=== PATIENT | male | born 1935 | race Caucasian/White ===

== ENCOUNTER 2022-05-23 18:36 | Inpatient (IN) | payer MEDICARE, OTHER ==
[~2022-05-23] VITALS: Ht 172.7 cm; Wt 68.0 kg
[2022-05-23 18:36] VITALS: BP 110/80
[2022-05-23] MEDS ORDERED: PROTHROMBIN COMPLEX HUMAN 500 UNITS KIT IV ONE ×2 (18:50→19:58)
--- NOTE | 2022-05-23 18:50 | NUR ---
PATIENT BIBA TO BED 9.
[2022-05-23 19:23] LABS: BASOPHILS # (AUTO) 0.1 K/uL (0.00-0.22); BASOPHILS % (AUTO) 0.5 % (0.0-2.0); EOSINOPHILS # (AUTO) 0.1 K/uL (0-0.4); EOSINOPHILS % (AUTO) 0.9 % (0.0-4.0); HEMOGLOBIN 10.2 g/dL (12.0-18.0); LYMPHOCYTES # (AUTO) 1.5 K/uL (2.0-11.5); LYMPHOCYTES % (AUTO) 10.3 % (20.5-51.1); MEAN CORPUSCULAR HEMOGLOBIN 30 pg (27-31); MEAN CORPUSCULAR HGB CONC 33 g/dL (33-37); MEAN CORPUSCULAR VOLUME 89.6 fL (80-94); MONOCYTES # (AUTO) 1.2 K/uL (0.8-1.0); MONOCYTES % (AUTO) 7.9 % (1.7-9.3); NEUTROPHILS % (AUTO) 80.4 % (42.2-75.2); PLATELET COUNT (AUTO) 604 K/uL (140-450); RED BLOOD CELL COUNT(AUTO) 3.45 MIL/uL (4.20-6.10); RED CELL DISTRIBUTION WIDTH 16.5 % (11.6-13.7)
--- NOTE | 2022-05-23 19:30 | NUR ---
Patient received on bed lying comfortably and awake. Alert and oriented x1. No acute distress. No complaints of pain or discomfort. Respirations even and unlabored. Wound laceration present on the forehead and nasal bridge covered by steri-strips. Bleeding is controlled.
[2022-05-23 19:39] LABS: ALBUMIN 2.9 g/dL (3.4-5.0); ANION GAP 15.1 (8-16); ASPARTATE AMINOTRANSFERASE 14 U/L (15-37); CARBON DIOXIDE 27.5 mmol/L (21-32); CHLORIDE 99 mmol/L (98-107); CREATININE 1.4 mg/dL (0.6-1.3); GLUCOSE 227 mg/dL (74-106); POTASSIUM 3.6 mmol/L (3.5-5.1); SODIUM SERUM 138 mmol/L (136-145); TOTAL BILIRUBIN 0.2 mg/dL (0.0-1.0); UREA NITROGEN, BLOOD 19 mg/dL (7-18)
[2022-05-23 19:41] LABS: PROTHROMBIN TIME 12.6 secs (10.8-13.4)
--- NOTE | 2022-05-23 19:46 | NUR ---
WOUND ON FOREHEAD AND NOSE IRRIGATED.
--- NOTE | 2022-05-23 22:45 | NUR ---
Dr. Garcia ordered for soft restraints for bilateral arms for the patient as patient is very disruptive while Dr. Garcia was performing sutures for the patient. Noted and carried out.
--- NOTE | 2022-05-23 22:51 | NUR ---
Jocelyn mclain in [facility] - 05/23/22 at 2252 by [id number] SAWYER PEREZ, Dr. Garcia, provided 7 surgical stitches on the laceration on the forehead with 7 sti
[2022-05-23] MEDS ORDERED: BACITRACIN OINT 500 UNITS/GM PKT TP ONE ×2 (22:54→23:45)
--- NOTE | 2022-05-23 22:55 | NUR ---
ER , Dr. Garcia, provided 7 surgical stitches on the patient's skin laceration on the forehead.
[2022-05-24] MEDS ORDERED: FLO.1 PO (00:34)
[2022-05-24] MEDS ORDERED: PANT40EC PO (00:34)
[2022-05-24] MEDS ORDERED: PRO5 PO (00:34)
[2022-05-24] MEDS ORDERED: ATOR20TA PO (00:34)
[2022-05-24] MEDS ORDERED: ACET-2619 PO (00:34)
[2022-05-24] MEDS ORDERED: SERT25TA PO (00:34)
[2022-05-24] MEDS ORDERED: QUET50TA PO (00:34)
[2022-05-24] MEDS ORDERED: SODI100076 PO (00:34)
[2022-05-24] MEDS ORDERED: FERR325E14 PO (00:34)
[2022-05-24] MEDS ORDERED: DEXT15DR6 OP (00:34)
[2022-05-24] MEDS ORDERED: MIRA25TE PO (00:34)
[2022-05-24] MEDS ORDERED: DONE10TA37 PO (00:34)
[2022-05-24] MEDS ORDERED: MEMA5TAB41 PO (00:34)
[2022-05-24] MEDS ORDERED: APIX5TAB PO (00:34)
[2022-05-24] MEDS ORDERED: TAMS0.4C96 PO (00:34)
[2022-05-24] MEDS ORDERED: CHOL25TA2 GT (00:34)
[2022-05-24] MEDS ORDERED: HUM7525 SUBQ ×2 (00:34)
[2022-05-24] MEDS ORDERED: METF-1139 PO (00:34)
[2022-05-24] MEDS ORDERED: OSC500 PO (00:34)
[2022-05-24] MEDS ORDERED: ACETAMINOPHEN 325 MG TAB PO PRN (01:55)
[2022-05-24] MEDS ORDERED: ONDANSETRON 4 MG/2 ML VIAL IM/IVP PRN (01:55)
[2022-05-24] MEDS ORDERED: ZOLPIDEM 5 MG TAB PO PRN (01:55)
[2022-05-24] MEDS ORDERED: DOCUSATE SODIUM 100 MG GELCAP PO PRN (01:55)
[2022-05-24] MEDS ORDERED: guaiFENesin DM 200/20 MG-10 ML 10 ML UDC PO PRN (01:55)
[2022-05-24] MEDS ORDERED: POTASSIUM CHLORIDE 10 MEQ TABER PO PRN (01:55)
[2022-05-24] MEDS ORDERED: cefTRIAXone 1,000 MG VIAL ONE (03:22)
[2022-05-24] MEDS: NACL 0.9% 1,000 ML IV SCH ×2 (03:32→18:35)
[2022-05-24 05:49] LABS: APPEARANCE,URINE CLOUDY (CLEAR); BILIRUBIN,URINE NEGATIVE (NEGATIVE); BLOOD, URINE 3+ (NEGATIVE); COLOR,URINE YELLOW (YELLOW); LEUKOCYTE ESTERASE ,URINE 3+ (NEGATIVE); NITRITE, URINE NEGATIVE (NEGATIVE); UGLUCOSE NEGATIVE (NEGATIVE)
[2022-05-24 06:02] LABS: RBC,URINE 11-20 (MOD) /HPF (0-5); WBC,URINE 80-100 /HPF (0-5)
--- NOTE | 2022-05-24 07:31 | NUR ---
pt awake and alert to self reports ongoing headache otherwise no other complaints. pt connected to monitor w vss. sutures to forehead intact.
[2022-05-24] MEDS: HYDROcodone/APAP 7.5/325 MG 1 TAB PO PRN (07:39)
--- NOTE | 2022-05-24 08:21 | NUR ---
Patient will be admitted to care of md gallo. Admited to tele. Will go to room 107b. Belongings list completed. Report to laci ivan.
[2022-05-24] MEDS ORDERED: PANTOPRAZOLE 40 MG TABEC PO SCH (09:00)
--- NOTE | 2022-05-24 09:12 | NUR ---
PATIENT HAS BEEN SCREENED AND CATEGORIZED MODERATE NUTRITION RISK. PATIENT WILL BE SEEN WITHIN 3-5 DAYS OF ADMISSION. 05/24/22-05/29/[address]
[2022-05-24] MEDS ORDERED: INSULIN LISPRO SLIDING SCALE 100 UNITS/ML VIAL SUBQ PRN (11:40)
[2022-05-24 12:00] VITALS: BP 135/85
[2022-05-24] MEDS ORDERED: DEXTROSE 50% 50 ML SYR IVP PRN (12:15)
[2022-05-24] MEDS: INSULIN LISPRO SLIDING SCALE 100 UNITS/ML VIAL SUBQ PRN ×2 (13:10→21:28)
--- NOTE | 2022-05-24 13:12 | NUR ---
NURSE NOTES BG BEFORE LUNCH 160- GIVEN 2 UNITS HUMALOG. [facility]. PATIENT ABLE TO FEED HIMSELF
[2022-05-24 16:00] VITALS: BP 144/79
[2022-05-24] MEDS: BLOOD GLUCOSE MONITORING 1 DEV DEV FS SCH ×2 (16:30→21:11)
--- NOTE | 2022-05-24 17:31 | NUR ---
NURSE NOTES BG BEFORE DINNER 138. NO INSULIN NEEDED
--- NOTE | 2022-05-24 19:30 | NUR ---
NURSE REPORT REPORT GIVEN TO NIGHT NURSE RONAL TO ASSUME CARE. ALL QUESTIONS ANSWERED. JENNY MORENO RN
--- NOTE | 2022-05-24 19:45 | NUR ---
NURSE NOTES IV PUMP NEEDED TO BE CHANGED SINCE THE ONES IN THE ROOM NOT GETTING CHARGED EVEN IF PLUGGED.
[2022-05-24 20:00] VITALS: BP 140/70
--- NOTE | 2022-05-24 20:00 | NUR ---
ON RESTRAINT , THERE IS OLD BRUISES ON BOTH ARM , L BRUISE ON THE L EYE AREA , SUTURE INTACT AND DRY AT FOREHEAD , DENIES PAIN
[2022-05-24] MEDS: QUEtiapine FUMARATE 25 MG TAB PO SCH (21:20)
[2022-05-24] MEDS: FERROUS SULFATE 325 MG TABEC PO SCH (21:20)
[2022-05-24] MEDS: ATORVASTATIN 20 MG TAB PO SCH (21:20)
[2022-05-24] MEDS: TAMSULOSIN 0.4 MG CAP PO SCH (21:20)
[2022-05-24] MEDS: DONEPEZIL 10 MG TAB PO SCH (21:20)
[2022-05-24] MEDS: APIXABAN 2.5 MG TAB PO SCH (21:28)
[2022-05-25] VITALS: BP 143/77
--- NOTE | 2022-05-25 | NUR ---
ROUNDS , NO S/SX OF ACUTE DISTRESS NOTED , WILL CONT. TO MONITOR
--- NOTE | 2022-05-25 02:00 | NUR ---
SLEEPING , CHEST RISE AND FALL EQUALLY . ON TELE MONITOR
[2022-05-25] MEDS: NACL 0.9% 1,000 ML IV SCH (03:30)
[2022-05-25 04:00] VITALS: BP 138/70
--- NOTE | 2022-05-25 04:00 | NUR ---
ROUNDS , NO S/SX OF ACUTE DISTRESS NOTED , WILL CONT. TO MONITOR
--- NOTE | 2022-05-25 06:00 | NUR ---
AWAKE . NO S/SX OF ACUTE DISTRESS NOTED . WILL CONT. TO MONITOR
[2022-05-25] MEDS: BLOOD GLUCOSE MONITORING 1 DEV DEV FS SCH ×4 (07:18→21:00)
--- NOTE | 2022-05-25 07:30 | NUR ---
RECEIVED REPORT FROM NIGHTSHIFT NURSE. PT IS ASLEEP IN BED, WOKE TO NAME AND TOUCH, NO SIGNS OF DISTRESS. PT IS AOX1, ON RM AIR, IV TO RIGHT FOREARM 20G (CLEAN AND INTACT). NO FURTHER NEEDS ARE TO BE MET AT THIS TIME. WILL CONTINUE WITH CARE.
--- NOTE | 2022-05-25 07:30 | NUR ---
ENDORSED FOR CONT. OF .CARE
--- NOTE | 2022-05-25 07:31 | NUR ---
RECEIVED REPORT FROM NIGHTSHIFT NURSE. PT IS ASLEEP IN BED, AOX2, WOKE TO NAME AND TOUCH. NO REPORTS OF PAIN OR DISTRESS. PT ON RM AIR, IV TO RIGHT FOREARM 20G CLEAN AND INTACT. NO FURTHER NEEDS ARE TO BE MET AT THIS TIME. BED IN LOWEST POSITION, SIDE RAILS UP, CALL LIGHT WITHIN REACH. WILL CONTINUE WITH CARE
[2022-05-25 07:52] LABS: BASOPHILS % (AUTO) 0.2 % (0.0-2.0); EOSINOPHILS # (AUTO) 0.3 K/uL (0-0.4); EOSINOPHILS % (AUTO) 2.7 % (0.0-4.0); HEMATOCRIT 29.8 % (36-52); LYMPHOCYTES # (AUTO) 2.3 K/uL (2.0-11.5); LYMPHOCYTES % (AUTO) 18.5 % (20.5-51.1); MEAN CORPUSCULAR HEMOGLOBIN 30 pg (27-31); MEAN CORPUSCULAR HGB CONC 34 g/dL (33-37); MEAN CORPUSCULAR VOLUME 88.4 fL (80-94); MONOCYTES # (AUTO) 1.5 K/uL (0.8-1.0); MONOCYTES % (AUTO) 11.9 % (1.7-9.3); NEUTROPHILS # (AUTO) 8.3 K/uL (1.8-7.7); NEUTROPHILS % (AUTO) 66.7 % (42.2-75.2); PLATELET COUNT (AUTO) 554 K/uL (140-450); RED BLOOD CELL COUNT(AUTO) 3.36 MIL/uL (4.20-6.10); RED CELL DISTRIBUTION WIDTH 16.3 % (11.6-13.7); WHITE BLOOD COUNT (AUTO) 12.4 K/uL (4.8-10.8)
[2022-05-25 08:00] VITALS: BP 132/80
[2022-05-25 08:10] LABS: MAGNESIUM 1.1 mg/dL (1.8-2.4)
[2022-05-25 08:12] LABS: ANION GAP 11.3 (8-16); CARBON DIOXIDE 30.8 mmol/L (21-32); CHLORIDE 102 mmol/L (98-107); CREATININE 1.1 mg/dL (0.6-1.3); GLUCOSE 148 mg/dL (74-106); POTASSIUM 3.1 mmol/L (3.5-5.1); SODIUM SERUM 141 mmol/L (136-145); UREA NITROGEN, BLOOD 18 mg/dL (7-18)
[2022-05-25] MEDS: PANTOPRAZOLE 40 MG TABEC PO SCH (09:07)
[2022-05-25] MEDS: FERROUS SULFATE 325 MG TABEC PO SCH ×2 (09:09→20:28)
[2022-05-25] MEDS: APIXABAN 2.5 MG TAB PO SCH ×2 (09:09→20:29)
[2022-05-25] MEDS ORDERED: MAG SULF 2000 MG/WATER PREMIX 50 ML IV PRN (09:10)
[2022-05-25] MEDS: SERTRALINE 50 MG TAB PO SCH (09:10)
[2022-05-25 12:00] VITALS: BP 137/76
--- NOTE | 2022-05-25 12:02 | NUR ---
WOUND CARE NOTE: SKIN ASSESSMENT DONE WITH THIS 86 Y/O PT. AWAKE S/P FALL WITH FACIAL LACERATION TO FOREHEAD WITH SUTURES IN PLACE AND SECURED WITH NO S/S OF WOUND DEHISCENCE. AREA DRY, YA-WOUND SKIN INTACT, NO ERYTHEMA. SKIN TEAR TO LEFT ELBOW AREA0.5X1.5CM SUPERFICIAL DEPTH, AREA, RED, MOIST YA WOUND SKIN ERYTHEMA. BILATERAL UPPER EXTREMITIES MULTIPLE ECCHYMOSIS, SKIN THIN AND EASILY TO TORN. PT. WITH LOW CONNIE SCALE AT MODERATE TO HIGH RISK, CONTINUE TO FOLLOW PRESSURE INJURY PREVENTION INTERVENTIONS. POC DISCUSSED WITH PRIMARY RN LEONCIO. RECOMMENDATIONS: -PAINT FOREHEAD SUTURES WITH BETADINE SWAP STICKS BID AND BIB -CLEANSE LEFT ELBOW SKIN TEAR WITH NS, PAT DRY,APPLY OIL EMULSION DRESSING AND COVER WITH DRY DRESSING QD AND PRN IF SOILING -POSITIONING: TURN AND REPOSITION PATIENT Q 2H OR SOONER USE PILLOWS TO KEEP BONY PROMINENCES FROM DIRECT CONTACT WITH SURFACES USE REPOSITIONING WEDGES TO PROVIDE 30-DEGREE ANGLE FOR SIDE LYING POSITIONS OFFLOADING OR FOAM DRESSING TO ALL TUBING TO PREVENT MEDICAL DEVICES RELATED PRESSURE INJURY -RE-EVALUATING AND MANAGING INCONTINENCE MONITOR SKIN CONDITION DURING POSITION CHANGE DO NOT MASSAGE REDNESS, BONY PROMINENCES FREQUENT YA-CARE AND PROVIDE BARRIER CREAMS PRN IF SOILING MOISTURE CONTROL BY OFFER BED GONSALEZ/URINAL /ABSORBENT PAD TO WICK AND HOLD MOISTURE KEEP SKIN DRY AND PROTECT FROM FRICTION -MANAGE FRICTION/SHEAR/MOBILITY KEEP HOB AT THE LOWEST LEVEL OF ELEVATION NO MORE THAN 30 DEGREE UNLESS OTHERWISE CONTRAINDICATED USE LIFT SHEET OR TRANSFER DEVICE TO MOVE PATIENT AND PREVENT LATERAL SHEER. PROTECT HEELS, ELBOWS BONY PROMINENCES WITH SKIN BERRIES OR FOAM DRESSING IF EXPOSED TO FRICTION OFFLOAD BILATERAL HEELS BY PLACING PILLOWS UNDER CALVES AT ALL TIMES, UNLESS OTHERWISE CONTRAINDICATED -PRESSURE REDISTRIBUTION SURFACE THERAPY REGINE ISOFLEX MATTRESS -NUTRITION: PLEASE FOLLOW RD RECOMMENDATIONS AND OFFER NUTRITION SUPPLEMENTS IF ORDERED. PLEASE CONTACT WOUND CARE NURSE FOR ANY QUESTION AND CHANGE OF WOUND CONDITION.
[2022-05-25] MEDS ORDERED: MAG SULF 2000 MG/WATER PREMIX 50 ML IV SCH (15:00)
[2022-05-25 16:00] VITALS: BP 156/80
[2022-05-25] MEDS: HYDROcodone/APAP 7.5/325 MG 1 TAB PO PRN (17:18)
--- NOTE | 2022-05-25 19:30 | NUR ---
RECEIVED REPORT FROM DAY SHIFT NURSE GABY FOR CONTINUITY OF CARE. PATIENT IS A&O X1-3. PATIENT IS ON ROOM AIR, BREATHING IS NORMAL WITH SYMMETRICAL RISE AND FALL OF CHEST. IV IS A 20G RFA, RUNNING NS AT 60. PATIENT IS SITTING UP AWAKE IN BED IN HIGH-FOWLERS POSITION. BED IS IN LOWEST POSITION, WHEELS LOCKED, CALL LIGHT IN PLACE. WILL CONTINUE TO OBSERVE PATIENT.
[2022-05-25] MEDS: INSULIN LISPRO SLIDING SCALE 100 UNITS/ML VIAL SUBQ PRN (19:41)
[2022-05-25 20:00] VITALS: BP 138/73
[2022-05-25] MEDS: TAMSULOSIN 0.4 MG CAP PO SCH (20:28)
[2022-05-25] MEDS: QUEtiapine FUMARATE 25 MG TAB PO SCH (20:28)
[2022-05-25] MEDS: ATORVASTATIN 20 MG TAB PO SCH (20:29)
[2022-05-25] MEDS: DONEPEZIL 10 MG TAB PO SCH (20:30)
--- NOTE | 2022-05-25 22:00 | NUR ---
ASKED PATIENT TO STATE HIS NAME, AND LOCATION. PATIENT WAS ABLE TO TELL ME HIS NAME AND , BUT WAS NOT SURE ABOUT HIS LOCATION; PATIENT THOUGHT HE MIGHT BE IN A [facility] IN [place] BUT ADMITTED TO NOT BEING SURE. I REORIENTATED THE PATIENT STATING THAT HE WAS IN A HOSPITAL IN [place], [place]. HE SMILED AND SAID, "OH, OKAY." PATIENT IS CURRENTLY OFF RESTRAINTS. PATIENT REQUESTED TO EAT, BUT DID NOT WANT HIS DINNER FROM THE [facility]. PATIENT REQUESTED A HAM AND CHEESE SANDWICH INSTEAD. I REMOVED PATIENT'S DINNER TRAY AND GAVE PATIENT A HAM AND CHEESE SANDWICH. PATIENT THANKED ME AND BEGAN EATING SANDWICH. PATIENT FINISHED EATING SANDWICH AND RECEIVED HIS 2100 MEDICATION. MEDICATION WAS ADMINISTERED WITHOUT ANY DIFFICULTY IN SWALLOWING. PATIENT WAS COMPLAINING ABOUT NECK PAIN, BUT IS REFUSED PAIN MEDICATION WHEN IT WAS OFFERED. I REPOSITIONED PATIENT'S PILLOW, AND LOWERED HIM TO SEMI-FOWLERS POSITION. PATIENT STATED THAT IT HELPED WITH THE PAIN. WILL CONTINUE TO OBSERVE PATIENT.
[2022-05-26] VITALS: BP 127/69
[2022-05-26] MEDS: NACL 0.9% 1,000 ML IV SCH (03:55)
[2022-05-26 04:00] VITALS: BP 134/66
--- NOTE | 2022-05-26 05:00 | NUR ---
PATIENT HAS SLEPT THROUGHOUT THE NIGHT. PATIENT HAD VOIDED AND WAS CLEANED WITH THE ASSISTANCE OF AZEEM GRIGSBY. PATIENT HAD VOIDED WITH NO BM. NEW CHUCKS DIAPER WAS APPLIED. WILL CONTINUE TO OBSERVE PATIENT.
[2022-05-26] MEDS: BLOOD GLUCOSE MONITORING 1 DEV DEV FS SCH ×3 (06:48→17:23)
[2022-05-26] MEDS: INSULIN LISPRO SLIDING SCALE 100 UNITS/ML VIAL SUBQ PRN ×3 (06:49→17:10)
--- NOTE | 2022-05-26 07:35 | NUR ---
ENDORSED TO DAY SHIFT NURSE ТАТЬЯНА FOR CONTINUITY OF CARE. PATIENT IS STABLE.
[2022-05-26 08:00] VITALS: BP 130/70
--- NOTE | 2022-05-26 08:02 | NUR ---
0800: RECEIVED REPORT FROM KEL GANN. PT RESTING IN BED EYES CLOSED. NO GUARDING OR GRIMACING. NO ACUTE DISTRESS NOTED AT THIS TIME. [id number].
[2022-05-26] MEDS: APIXABAN 2.5 MG TAB PO SCH (08:40)
[2022-05-26] MEDS: SERTRALINE 50 MG TAB PO SCH (08:45)
[2022-05-26] MEDS: FERROUS SULFATE 325 MG TABEC PO SCH (08:46)
[2022-05-26] MEDS: PANTOPRAZOLE 40 MG TABEC PO SCH (08:47)
[2022-05-26] MEDS ORDERED: SULF-58 PO (10:18)
[2022-05-26] MEDS ORDERED: LACT500C2 PO (10:18)
[2022-05-26 12:00] VITALS: BP 144/74
[2022-05-26] MEDS ORDERED: ERTA1VIA2 IV (13:15)
--- NOTE | 2022-05-26 14:56 | NUR ---
RECEIVED ORDER FOR PATIENT TO RETURN BACK TO [facility]. FAXED TO [facility]. SPOKE WITH ELSA LOCATED AT [address] [facility] [address]. PATIENT WAS ACCEPTED BACK AND WILL BE GOING TO ROOM 15-B UNDER DR MARTINEZ. SPOKE WITH MAREN AT THE [facility]. 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 WILL FOLLOW UP WITH MAREN AT TO SEE IF TRANSPORTATION WAS SET UP. Addendum: 05/26/22 at 1525 by BRENDA RAMIREZ CM INFORMED VIA VOICE MAIL MAREN TO CANCEL TRANSPORT FOR PATIENT TO GO TO [facility]. GURNEY TRANSPORT WAS SET UP WITH THOMAS AT [facility] WITH A [id number] FILE DRAWER FINISHER TIME. HOSPITAL WILL BE BILLED FOR THIS TRANSPORT. NURSE MONSALVE AND DAUGHTER KYLAH AWARE OF THE ABOVE INFORMATION.
[2022-05-26 17:54] VITALS: BP 114/69
[2022-05-26 19:54] VITALS: BP 130/70
== END 2022-05-26 18:51 | DRG 604 ==
LOC: MED 18:36 → MTU 05-24 01:59 → INTOOBSV 05-24 01:59 → MTU 05-24 06:23 → OBSVTOIN 05-24 11:20 → INTOOBSV 05-24 11:20 → OBSVTOIN 05-25 11:20
PROVIDERS: ADMIT Student in an Organized Health Care Education/Training Program; ATTEND Student in an Organized Health Care Education/Training Program
PROC: 0HQ0XZZ Repair Scalp Skin, External Approach (ICD-10-PCS; principal; 2022-05-25)
DX: S01.01XA Laceration without foreign body of scalp, initial encounter (principal); E43 Unspecified severe protein-calorie malnutrition; G93.41 Metabolic encephalopathy; N17.0 Acute kidney failure with tubular necrosis; N39.0 Urinary tract infection, site not specified; E78.5 Hyperlipidemia, unspecified; N40.0 Benign prostatic hyperplasia without lower urinary tract symptoms; W18.39XA Other fall on same level, initial encounter; G30.9 Alzheimer's disease, unspecified; Z20.822 Contact with and (suspected) exposure to COVID-19; F02.80 Dementia in other diseases classified elsewhere, unspecified severity, without behavioral disturbance, psychotic disturbance, mood disturbance, and anxiety; Z68.22 Body mass index [BMI] 22.0-22.9, adult; Z85.46 Personal history of malignant neoplasm of prostate; Z83.3 Family history of diabetes mellitus; Z79.4 Long term (current) use of insulin; Z79.899 Other long term (current) drug therapy; Y93.89 Activity, other specified; Y92.89 Other specified places as the place of occurrence of the external cause; Y99.8 Other external cause status
CPT/HCPCS: 96374; 99291; G0378; 36415; 70450; 71045; 72125; 80048; 80053; 81001; 82948; 83735; 83880; 84100; 84484; 85025; 85610; 85730; 87081; 87086; 93005; 97163-GP; 97530; C9132; J0696; J1815; J3475; J7060; Q0092